=== PATIENT | male | born 2000 | race Caucasian/White ===

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

== ENCOUNTER 2024-11-24 14:08 | Emergency (ER) | payer MEDICAID ==
[~2024-11-24] VITALS: Ht 180.3 cm; Wt 75.4 kg
[2024-11-24 14:09] VITALS: BP 143/82; PULSE 98; RESP 18; O2SAT 100
--- NOTE | 2024-11-24 14:21 | Physician Documentation ---
History of Present Illness ~ Chief Complaint: Anxiety Stated Complaint: RACING HEART Time Seen by MD: 14:22 Primary Medical Doctor: [facility] HPI Patient is a 23-year-old male that presents to the emergency department for evaluation of palpitations that he had intermittently last night palpitations that he has had for approximately 10-15 minutes today after taking his Lexapro and an additional medication. Patient denies shortness of breath chest pain, chest pressure, nausea vomiting any radiating pain. Patient reports a history of anxiety. Patient denies any other concerns or symptoms at this time. Medication Reconciliation Allergies: Coded Allergies: No Known Allergies (Unverified , 11/24/24) No Active Prescriptions or Reported Meds Past Medical History Past Medical History: No Pertinent History Past Surgical History: noncontributory Alcohol Use: None Drug Use: none Lives with: Family Lives In: Home Occupation: student Physical Exam Vital Signs: Temperature: 98.4, Source: Temporal, Heart Rate: 98, Respiratory Rate: 18, BP: 143/82, Pulse Oximetry: 100, Weight: 75.400 Oxygen Flow Rate: 0 Progress Results/Orders Results/Orders Completed Orders - HIRAL HANDLEY [employer] SCI[employer]IST Cbc/Diff (11/24/24 15:01) CMP (11/24/24 15:01) Vital Signs 11/24/24 14:09 Temp 98.4 Pulse 98 Resp 18 B/P (MAP) 143/82 Pulse Ox 100 O2 Flow Rate 0 Laboratory Tests Test 11/24/24 15:11 White Blood Count 7.2 Red Blood Count 5.23 Hemoglobin 15.0 Hematocrit 44.0 Mean Corpuscular Volume 84.3 Mean Corpuscular Hemoglobin 28.7 Mean Corpuscular Hemoglobin Concent 34.1 Red Cell Distribution Width 12.9 Platelet Count 274 Mean Platelet Volume 7.8 Neutrophils (%) (Auto) 74.7 Lymphocytes (%) (Auto) 15.9 L Monocytes (%) (Auto) 8.2 Eosinophils (%) (Auto) 0.5 Basophils (%) (Auto) 0.7 Neutrophils # (Auto) 5.4 Lymphocytes # (Auto) 1.2 Monocytes # (Auto) 0.6 Eosinophils # (Auto) 0.0 Basophils # (Auto) 0.1 CBC Comment Sodium Level 138 Potassium Level 3.8 Chloride Level 101 Carbon Dioxide Level 23.4 L Anion Gap 14 Blood Urea Nitrogen 17 Creatinine 1.07 Estimated GFR/1.73 m2 84 BUN/Creatinine Ratio 15.9 Glucose Level 109 H Calcium Level 9.2 Total Bilirubin 0.5 Aspartate Amino Transf (AST/SGOT) 22 Alanine Aminotransferase (ALT/SGPT) 27 Alkaline Phosphatase 85 Total Protein 7.6 Albumin 4.8 Globulin 2.8 Albumin/Globulin Ratio 1.7 H Chemistry Comments Medical Decision Making Findings This patient presents with symptoms consistent with acute anxiety reaction / panic attack. Low suspicion for acute cardiopulmonary process including ACS, PE, or thoracic aortic dissection. Denies any ingestions or any other medical complaints. No evidence of alcohol withdrawal symptoms. Given history and physical presentation not consistent with overt toxidrome, ingestion. Presentation not consistent with a medical emergency at this time. No acute indication for psychiatric consultation (without SI/HI, AH/VH). Cautious return precautions discussed with full understanding. Discussed with patient following up with his primary care provider and resuming therapy for his history of anxiety disorder. Patient is very teary here on discharge but reports that he has no intention to harm himself harm others does not feel overtly depressed but does report significant anxiety. Discussed with patient to return to the emergency department with any worsening of his current symptoms any additional concerning symptoms i.e. chest pain shortness of breath lightheadedness dizziness feelings of depression suicidal or homicidal any other concerning symptoms. Differential Dx:Considerations: Include: Alcohol abuse, Anxiety, Bipolar disorder, Conversion disorder, Depression, Encephaloathy, Homicidal, Panic disorder, Personality disorder, Schizophrenia, Substance abuse, Suicidal, Other Departure Disposition: 01 HOME / SELF CARE / HOMELESS Impression: Primary Impression: Anxiety Additional Impressions: Anxiety attack Palpitation Additional Instructions: This patient presents with symptoms consistent with acute anxiety reaction / panic attack. Low suspicion for acute cardiopulmonary process including ACS, PE, or thoracic aortic dissection. Denies any ingestions or any other medical complaints. No evidence of alcohol withdrawal symptoms. Given history and physical presentation not consistent with overt toxidrome, ingestion. Presentation not consistent with a medical emergency at this time. No acute indication for psychiatric consultation (without SI/HI, AH/VH). Cautious return precautions discussed with full understanding. Discussed with patient following up with his primary care provider and resuming therapy for his history of anxiety disorder. Patient is very teary here on discharge but reports that he has no intention to harm himself harm others does not feel overtly depressed but does report significant anxiety. Discussed with patient to return to the emergency department with any worsening of his current symptoms any additional concerning symptoms i.e. chest pain shortness of breath lightheadedness dizziness feelings of depression suicidal or homicidal any other concerning symptoms. Referrals: NO PRIMARY CARE PROVIDER (PCP) Prescriptions No Active Prescriptions or Reported Meds Education Educated: Patient Educated regarding: diagnosis, treatment, need for follow up Signature Scribe Signature: A Attestation: Scribed for Hiral Handley by INGRID Marin . 11/24/24 15:54 HIRAL HANDLEY Nov 24, 2024 14:21
--- NOTE | 2024-11-24 14:28 | ELECTROCARDIOGRAPH REPORT ---
[facility] Test Date: 2024-11-24 Test Time: 14:26:20 Pat Name: CHRISTOS GARCIA Department: [facility] Patient ID: [id number] Room: Gender: M Crew Foreman: : 2000 Requested By: EMIGDIO FOWLER Order Number: [id number] Reading MD: Measurements Intervals [place] Rate: 93 P: 70 WA: 147 QRS: 77 QRSD: 96 T: 21 QT: 348 QTc: 433 Interpretive Statements Sinus rhythm ST elev, probable normal early repol pattern Please click the below link to view image of tracing.
[2024-11-24 15:25] LABS: MEAN PLATELET VOLUME 7.8 FL (7.4-10.4); RED CELL DISTRIBUTION WIDTH 12.9 % (11.5-14.5)
[2024-11-24 15:40] LABS: CREATININE 1.07 MG/DL (0.60-1.10); TOTAL CARBON DIOXIDE 23.4 MMOL/L (24-32); eCRCL 112 ML/MIN; eGFR 84 ML/MIN
[2024-11-24 16:05] VITALS: TEMP 98.4
== END 2024-11-24 16:06 | disposition home or self-care (01) ==
LOC: ER 14:09
DX: F41.0 Panic disorder [episodic paroxysmal anxiety] (principal)
CPT/HCPCS: 10060; 36415; 80053; 85025; 93005; 99284